=== PATIENT | female | born 1970 | race Hispanic/Latino ===

== ENCOUNTER 2017-11-24 06:20 | Day surgery (SDC) | payer MEDICARE, OTHER ==
[2017-11-24] MEDS ORDERED: WATER FOR IRRIG STERILE IR ONE (07:18)
--- NOTE | 2017-11-24 07:42 | Anesthesia Consultation ---
Anesthesia Consult and Med Hx Date of service: 11/24/17 - Airway Anesthetic Teeth Evaluation: Good ROM Head & Neck: Adequate Mental/Hyoid Distance: Adequate Mallampati Class: Class I Intubation Access Assessment: Good - Pulmonary Exam CTA: Yes - Cardiac Exam Cardiac Exam: RRR - Pre-Operative Health Status ASA Pre-Surgery Classification: ASA3 Proposed Anesthetic Plan: MAC - Pre-Anesthesia Comment Pre-Anesthesia Comments: Rheumatoid Arthiritis, Sjogrens - Pulmonary Hx Asthma: Yes (last inhaler use 1 yr) Hx Sleep Apnea: Yes (cpap) - Gastrointestinal Hx Gastroesophageal Reflux Disease: Yes - Endocrine Hx Insulin Dependent Diabetes: Yes Hx Hypothyroidism: Yes - Other Systems Hx Obesity: Yes
--- NOTE | 2017-11-24 07:43 | Anesthesia Day of Surgery ---
Anesthesia Day of Surgery - Day of Surgery Patient Examined: Yes Patient H&P Reviewed: Yes Patient is NPO: Yes
[2017-11-24] MEDS ORDERED: HURRICAINE ONE 20% TOPICAL SPRAY MM ×2 (07:50→07:53)
[2017-11-24] MEDS ORDERED: DIPRIVAN 10 MG/ML IV ONE ×2 (07:51)
[2017-11-24] MEDS ORDERED: XYLOCAINE 1% 20 mL ONE (07:55)
[2017-11-24] MEDS ORDERED: NACL 0.9% 1000 ML 1,000 ML IV SCH (08:00)
--- NOTE | 2017-11-24 08:03 | Discharge Summary ---
Providers - Providers Date of discharge: 11/24/17 Attending physician: DANYELLE SALAZAR Primary care physician: STORM PIKE Hospitalization Condition: Good Procedures: egd Hospital course: uneventful egd as part of pre-op planning for upcoming bariatric surgery Disposition: DC-01 TO HOME OR SELFCARE Core Measure Documentation - Palliative Care Palliative Care/ Comfort Measures: Not Applicable - Core Measures Any of the following diagnoses?: none Exam - Physical Exam Narrative exam: unchanged from pre-op - Constitutional Vitals: Temp Pulse Resp BP Pulse Ox 99 F 81 15 134/82 96 11/24/17 07:39 11/24/17 07:39 11/24/17 07:39 11/24/17 07:39 11/24/17 07:39 Plan Activity: no restrictions Weight Bearing Status: Full Weight Bearing Diet: regular Follow up with: STORM PIKE MD [Primary Care Provider] - 7 Days
[2017-11-24] MEDS ORDERED: ZOFRAN ONE (08:13)
[2017-11-24 08:23] VITALS: BP 110/59
[2017-11-24] MEDS ORDERED: FLUSH HEPARIN IV ONE (08:28)
--- NOTE | 2017-11-24 09:28 | Operative Report ---
Operative Report Operative Report: OPERATIVE REPORT - EGD DATE 11/24/17 SURGERY: Upper endoscopy. SURGEON: Wyatt Crow M.D. PRE OP DX: dyspepsia POST OP DX: hiatal hernia TYPE OF ANESTHESIA: MAC. ESTIMATED BLOOD LOSS: None. COMPLICATIONS: None. SPECIMENS REMOVED: None. FINDINGS: 1. hiatal hernia. 2. Otherwise, normal esophagus, stomach and first portion of duodenum. INDICATIONS:INDICATION FOR PROCEDURE: Patient is a 47-year-old female with a long history of morbid obesity. She is planned to have a weight loss procedure and is here for preoperative planning EGD. PROCEDURE DETAILS: After consent was reviewed, patient was taken back to the operating room where patient was placed in the left lateral decubitus position and a bite block was placed in the mouth. After a time-out was called, MAC anesthesia was initiated. I then passed the endoscope into her oropharynx, into her esophagus, visualized the entire esophagus, which was all within normal limits. I then visualized the stomach and the first portion of the duodenum and there were no abnormalities I could clearly visualize. I then retroflexed the scope in the stomach and visualized the hiatus and I could see a hiatal hernia. I then desufflated the stomach and removed the endoscope. Patient tolerated procedure well and was transferred to recovery room in good and stable condition.
--- NOTE | 2017-11-24 14:34 | Post Anesthesia Evaluation ---
- Post Anesthesia Evaluation Patient Participated: Yes Airway Patent: Yes Stable Respiratory Function: Yes Nausea/Vomiting: No Temp > 96.8F: Yes Pain Manageable: Yes Adequeate Hydration: Yes Anesthesia Complications: No
== END 2017-11-24 06:21 | disposition home or self-care (01) ==
LOC: EDBD → GIO 06:20
PROVIDERS: ATTEND Surgery
DX: R10.13 Epigastric pain (principal); K44.9 Diaphragmatic hernia without obstruction or gangrene; E66.01 Morbid (severe) obesity due to excess calories; E11.9 Type 2 diabetes mellitus without complications; E03.9 Hypothyroidism, unspecified; J45.909 Unspecified asthma, uncomplicated; G47.30 Sleep apnea, unspecified; K21.9 Gastro-esophageal reflux disease without esophagitis; M35.00 Sjogren syndrome, unspecified; M06.9 Rheumatoid arthritis, unspecified; Z88.2 Allergy status to sulfonamides; Z99.89 Dependence on other enabling machines and devices; Z88.6 Allergy status to analgesic agent; Z88.8 Allergy status to other drugs, medicaments and biological substances; Z79.899 Other long term (current) drug therapy; Z98.890 Other specified postprocedural states; Z90.49 Acquired absence of other specified parts of digestive tract; Z68.38 Body mass index [BMI] 38.0-38.9, adult
CPT/HCPCS: 43235; J1642; J2405; J2704; J7030